=== PATIENT | male | born 1935 | race Caucasian/White ===

== ENCOUNTER 2016-10-10 15:00 | Emergency (ER) | payer MEDICARE ==
[~2016-10-10] VITALS: Ht 177.8 cm; Wt 95.5 kg
[~2016-10-10 15:00] MED LIST: ASPI-628 PO; BUTA-238 PO; GLUC100016 PO; HYDR25TA4 PO; LEVO50TA6 PO; LISI-567 PO; METO25TA6 PO; OMEG1CAP5 PO; OMEP-113 PO; TAMS0.4C29 PO; WARF5TAB7 PO; [UNRECOGNIZED DRUG - OTHER] PO
[2016-10-10 15:10] VITALS: BP 134/76; PULSE 136; RESP 18; O2SAT 98
--- NOTE | 2016-10-10 15:10 | ED.REPORT ---
HPI-Chest Pain 40 and Over Date of Service Oct 10, 2016 ED Provider: The patient is an 81 year old male with history of atrial fibrillation on Warfarin, hypertension, hyperlipidemia, coronary artery disease, and symptomatic sinus bradycardia s/p pacemaker, who presents to the emergency department complaining of a palpitations that began last night. This morning it seemed like his heart slowed down but it began to speed up again prior to arrival. He states, "it feels like I have been running." He denies chest pain, shortness of breath, lower extremity swelling, fever, chills, abdominal pain or cough. Nursing Notes Stated Complaint: HEART RATE RACING Chief Complaint: Dysrhythmia/Cardiac Nursing Notes Reviewed: Yes Allergies: Coded Allergies: No Known Allergies (Verified Allergy, Unknown, NONE, 06/18/14) Scheduled Aspirin (Aspir 81) 81 Mg Tablet.dr 81 MG PO DAILY Glucosamine Sulfate 2Kcl (Glucosamine) 1,000 Mg Tablet 500 MG PO BID Hydrochlorothiazide (Hydrochlorothiazide) 25 Mg Tablet 12.5 MG PO DAILY Levothyroxine (Levothyroxine) 50 Mcg Tablet 50 MCG PO DAILY Lisinopril (Lisinopril) 20 Mg Tablet 20 MG PO BID Metoprolol Tartrate (Metoprolol Tartrate) 25 Mg Tablet 12.5 MG PO BID [place]-3 Fatty Acids/Fish Oil (Fish Oil 1,000 mg Capsule) 1 Each Capsule 1 EACH PO DAILY Omeprazole Magnesium (Omeprazole) 20 Mg Capsule.dr 40 MG PO DAILY Tamsulosin ER (Tamsulosin ER) 0.4 Mg Cap.er.24h 0.4 MG PO DAILY Warfarin Sodium (Warfarin Sodium) 5 Mg Tablet 5 MG PO DAILY Scheduled PRN ([coloncare]) 1 TSP PO DAILY PRN PRN d Butalbital/Acetamin/Caff 50-300-40 mg (Butalbital/Acetamin/Caff 50-300-40 mg) 1 Each Tablet 1 EACH PO Q4 PRN PRN For Headache General Time Seen by MD: 15:10 Chief Complaint Other (palpitations) Hx Obtained From: Patient Arrived By: Walk-in Sudden in Onset?: Yes Onset Occurred: Yesterday Symptom Duration: Waxes and wanes Severity: Current: No pain currently Severity: Maximum: No pain Recent Healthcare: No recent doctor visit, No recent hospitalization Similar Sx Previous: Yes Past Medical History Past Medical History Notes: Superintendent Plant: Dr. Kebede Past Medical History 1. 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 2. Monoclonal gammopathy of undetermined significance. 3. Mild chronic idiopathic thrombocytopenia. 4. Osteopenia. 5. Atrial fibrillation 6. Symptomatic sinus bradycardia s/p pacemaker 7. Hypertension 8. Hyperlipidemia 9. Coronary artery disease s/p stenting Past Surgical History Endoscopy, colonoscopy Dual-chamber cardiac pacemaker implanted on March 05, 2013 Cardiac stents Family History Noncontributory Smoking History Former Smoker Social History Other Social History: Good social support, , Local resident Ambulatory Status Independent Review of Systems Constitutional: Denies: Chills, Fever Respiratory: Denies: Non-productive cough, Shortness of breath Cardiovascular: Reports: Palpitations, Denies: Chest pain GI: Denies: Abdominal pain, Nausea, Vomiting Musculoskeletal: Denies: Extremity swelling Complete sys rev & neg: except as marked. Physical Exam Initial Vital Signs Vital Signs (First) Date Time Temp Pulse Resp B/P Pulse Ox O2 Delivery O2 Flow Rate FiO2 10/10/16 15:10 136 18 134/76 98 Room Air Initial VS: Reviewed Head / Eyes: Atraumatic, Normocephalic, PERRL ENT: Mucous membranes moist, Conjunctiva normal, No scleral icterus Lymphatic: No lymphadenopathy Extremities: Vascular intact, Neuro intact, No swelling, No tenderness Skin: Warm, Dry, No cyanosis Neurologic: Alert, Oriented, Nonfocal Psychiatric: Mood/affect normal, Behavior normal, Normal thought content General/Constitutional: Awake, Alert, Cooperative Respiratory / Chest: Atraumatic, Breath sounds NL, Breath sounds = bilat, No respiratory distress, No rales, No rhonchi, No wheezing, No stridor, No chest tenderness Heart Rate / Rhythm: Positive: Irreg irregular rhythm, Tachycardia Abdomen: Atraumatic, Soft, Non-tender, McBurney's non-tender, No guarding, No rebound, BS normoactive, No distention, No hernia, No palpable mass Neck: Atraumatic, Non-tender, No midline vertebral tend, No JVD Interpretation & Diagnostics Lab Results Interpretation Result Diagram: 10/10/16 1522 10/10/16 1522 Test 10/10/16 15:22 White Blood Count 7.0th/mm3 (3.8-10.1) Red Blood Count 5.15mil/mm3 (4.40-5.80) Hemoglobin 14.4g/dL (13.8-17.2) Hematocrit 42.4% (41.0-50.0) Mean Corpuscular Volume 82.3fL (81-100) Mean Corpuscular Hemoglobin 28.0pg (27.0-35.0) Mean Corpuscular Hemoglobin Concent 34.0% (32.0-37.0) Red Cell Distribution Width 14.1% (12.3-15.4) Platelet Count 127bil/L (150-400) Neutrophils (%) (Auto) 57.4% (40-74) Lymphocytes (%) (Auto) 33.9% (14-46) Monocytes (%) (Auto) 7.2% (4-12) Eosinophils (%) (Auto) 1.3% (0-5) Basophils (%) (Auto) 0.1% (0-3) Prothrombin Time 22.6sec (8.1-12.5) Prothromb Time International Ratio 2.08ratio Sodium Level 135mEq/L (134-144) Potassium Level 3.9mEq/L (3.5-5.2) Chloride Level 98mEq/L (97-108) Carbon Dioxide Level 23mmol/L (18-29) Blood Urea Nitrogen 19mg/dL (8-27) Creatinine 1.10mg/dL (0.76-1.27) Estimat Glomerular Filtration Rate 68mL/min (>59) Glucose Level 117mg/dL (60-99) Calcium Level 9.7mg/dL (8.5-10.1) Magnesium Level 2.0mg/dL (1.6-2.6) Total Bilirubin 0.5mg/dL (0.0-1.2) Aspartate Amino Transf (AST/SGOT) 20U/L (0-50) Alanine Aminotransferase (ALT/SGPT) 21U/L (0-44) Alkaline Phosphatase 46U/L (25-160) Total Protein 7.2g/dL (6.4-8.4) Albumin 4.2g/dL (3.4-5.0) Thyroid Stimulating Hormone (TSH) 2.600uIU/mL (0.450-4.500) ECG Interpretation ECG Interpretation: Atrial fibrillation with a rate of 124 He has previously been in sinus rhythm Time: 15:19 Interpreted by: ED physician X-Ray Chest Interpretation Chest Xray Interpretation: IMPRESSION: No acute pulmonary process. Dictated by: Tonia Ireland M.D. on 10/10/2016 at 16:08 Interpretation / Wet Read by: Interpret - Radiologist Re-Eval/Medical Decision Med Decision/Clinical Course Patient arrives in A. fib with rapid ventricular response, other than the sense of palpitations he has no other concerning symptoms. Labs are unremarkable, chest x-ray unremarkable, he is treated with 25 of oral metoprolol and a total of 12.5 mg IV which has brought appropriate rate control with a persistent heart rate under 100. I did discuss with him synchronized cardioversion, he declines this as he does not seem to have much in the way of symptoms. I also discussed with his job setter honing who is in agreement with close follow-up in increasing the home dose of metoprolol. Strict return and follow-up precautions given. Source of Hx: Old records, Family Time of Eval: 15:45 Re-Evaluation/Progress Note: Rechecked the patient. Time of Eval: 16:21 Re-Evaluation/Progress Note: The patient is resting comfortably. Discussed plan to discuss his case with Dr. Kebede. Time of Eval: 16:59 Re-Evaluation/Progress Note: Offered synchronized cardioversion and he doesn't feel that bad and would like to go home. He takes 12.5 mg metoprolol twice daily. We discussed plan to increase this dose. All questions were addressed. Consultation : Referral / Consult Name: Bean Kebede MD Consulted With: Cardiology Call Returned at: 16:49 Facilities Flight Check Pilot: Agrees with eval, Agrees with plan Note: Dr. Kebede will followup with the patient tomorrow. Counseled Regarding: Diagnosis, Lab results, Need for follow-up, When/why to return to ED Discharge & Departure Primary Impression: Atrial fibrillation Atrial fibrillation type: paroxysmal Qualified Code: I48.0 - Paroxysmal atrial fibrillation Disposition: Home Discharge Condition All VS Reviewed: Yes Condition: Stable Additional Instructions: Thank you for entrusting us with your care today. Call Dr. Kebede's office in the morning to schedule a followup appointment. Take 1.5 pills twice daily of your Metoprolol. Please return to the emergency department if you develop chest pain, shortness of breath, lightheadedness, dizziness, syncope, or any other new or concerning symptoms. Referrals: Max Robertson MD (PCP) Bean Kebede MD Attestation Portions of this note were transcribed by Naya Bardy. I, Dr. Kwon personally performed the history, physical exam and medical decision-making; I reviewed and confirmed the accuracy of the information in the transcribed note. Signed by: Annel Nguyen, 10/10/2016 at 1710. copies to: Max Robertson MD; Bean Kebede MD, Timothy S DO Oct 10, 2016 15:10 Naya Brady Oct 10, 2016 15:19
[2016-10-10] MEDS: MeTOProlol 1 mg/mL 5 mL Inj IVPUSH PRN ×3 (15:29→16:51)
[2016-10-10 15:34] VITALS: BP 116/70; PULSE 112; RESP 22; O2SAT 97
[2016-10-10 15:50] LABS: BASOPHILS % (AUTO) 0.1 % (0-3); EOSINOPHILS % (AUTO) 1.3 % (0-5); MONOCYTES % (AUTO) 7.2 % (4-12); Mean Corpuscular Volume 82.3 fL (81-100); NEUTROPHILS % (AUTO) 57.4 % (40-74); Platelet Count 127 bil/L (150-400)
[2016-10-10 15:53] LABS: INR 2.08 ratio
--- NOTE | 2016-10-10 16:09 | DRSVH ---
PROCEDURE: X-RAY CHEST ONE VIEW, PORTABLE ([id number]) INDICATIONS: palpitations TECHNIQUE: One view of the chest was acquired. COMPARISON: [facility], CR, XR CHEST 1VW (PORTABLE), 05/14/2016, 14:21. FINDINGS: Surgical changes and devices: Pacemaker. Lungs and pleura: No pleural effusions or pneumothorax. Lungs are clear. Mediastinum: Mediastinal contours appear normal. Heart size is normal. Bones and chest wall: No suspicious bony lesions. Overlying soft tissues appear unremarkable. IMPRESSION: No acute pulmonary process. Dictated by: Tonia Ireland M.D. on 10/10/2016 at 16:08 Approved by: Tonia Ireland M.D. on 10/10/2016 at 16:08
[2016-10-10 16:11] VITALS: BP 117/65; PULSE 111; O2SAT 96
[2016-10-10 16:30] VITALS: BP 109/64; PULSE 111
[2016-10-10 17:13] VITALS: BP 124/67; PULSE 97; RESP 19; O2SAT 97
== END 2016-10-10 17:10 | disposition home or self-care (01) ==
LOC: SED 15:00
DX: I48.0 Paroxysmal atrial fibrillation (principal); I10 Essential (primary) hypertension; E78.5 Hyperlipidemia, unspecified; I25.10 Atherosclerotic heart disease of native coronary artery without angina pectoris; Z86.79 Personal history of other diseases of the circulatory system; Z95.0 Presence of cardiac pacemaker; Z95.818 Presence of other cardiac implants and grafts; Z92.21 Personal history of antineoplastic chemotherapy; Z85.46 Personal history of malignant neoplasm of prostate; Z87.891 Personal history of nicotine dependence; Z79.01 Long term (current) use of anticoagulants; Z79.82 Long term (current) use of aspirin

== ENCOUNTER 2016-11-11 07:52 | Inpatient (IN) | payer MEDICARE ==
[~2016-11-11] VITALS: Ht 177.8 cm; Wt 97.4 kg
[2016-11-11 08:08] VITALS: BP 108/73; PULSE 115; RESP 16; O2SAT 98
[2016-11-11 08:10] VITALS: PULSE 142
[2016-11-11] MEDS ORDERED: Polyethylene Glycol (PEG) 17 Gm Powder PO PRN (08:25)
[2016-11-11] MEDS ORDERED: Alum-Mag Hydrox-Simeth 30 mL Suspension PO PRN (08:25)
[2016-11-11 09:08] LABS: INR 2.38 ratio
[2016-11-11 09:20] LABS: Magnesium 1.9 mg/dL (1.6-2.6)
[2016-11-11] MEDS ORDERED: HYDR12.5 PO (09:47)
[2016-11-11] MEDS ORDERED: SIMV20TA4 PO (09:47)
[2016-11-11] MEDS ORDERED: METO-272 PO (09:47)
[2016-11-11] MEDS ORDERED: OMEP20CA11 PO (09:47)
[2016-11-11] MEDS ORDERED: LISI10TA PO (09:47)
[2016-11-11] MEDS ORDERED: OMEG300C3 PO (09:51)
[2016-11-11] MEDS ORDERED: CHOL200047 PO (09:51)
[2016-11-11 12:00] VITALS: BP 127/84; PULSE 120; RESP 16; O2SAT 98
[2016-11-11 16:00] VITALS: BP 143/88; PULSE 102; RESP 16; O2SAT 98
--- NOTE | 2016-11-11 18:31 | NUR ---
Admit Patient was a direct admit to [facility] for sotalol loading. Patient arrived on unit around 0830. Patient A&Ox3, ambulates independently around unit. VSS. Tele Afib with a rate of 120-130. Denies pain/discomfort. States he has been getting SOB frequently but denies these symptoms today. Patient watching TV call light within reach.
--- NOTE | 2016-11-11 18:35 | HP ---
[address] [address] HISTORY AND PHYSICAL PATIENT: RAUL REICH : 1935 MR#: [id number] ADMIT: 11/11/2016 JOB ID: [id number] REASON FOR ADMISSION: To start new antiarrhythmic therapy for atrial fibrillation with sotalol. CHIEF COMPLAINT: Palpitations, dyspnea and fatigue. HISTORY: The patient is a pleasant, 81-year-old man with a structurally normal heart who was known to have coronary artery disease and who is status post PCI several years ago. He also has sick sinus syndrome and a dual-chamber pacemaker in place. Newly diagnosed is atrial fibrillation and his pacemaker data has shown persistence of atrial fibrillation for several weeks. Prior to this time, his atrial fib had been paroxysmal and self-terminating. With this continuous atrial fibrillation he has become dyspneic and fatigued and just does not have much exertional energy. PAST MEDICAL HISTORY: Includes sinus bradycardia in February 2012, atrial tachycardia in April 2015. He also has hypertension, dyslipidemia, and a family history of coronary artery disease. ALLERGIES: No known medication allergies. REVIEW OF SYSTEMS: Overall no recent weight gain or weight loss but he is in general fatigue. Skin: No rash. Musculoskeletal: No muscle weakness. Neuro: No dizziness, near-syncope or syncope. : No hematuria. GI: No blood in stool and no heartburn. Psychiatric: No anxiety. Cardiac: Positive for palpitations and elevated heart rate but negative for chest pain, claudication or edema. Respiratory: No dyspnea at rest. Hematology: No easy bleeding. Endocrine: No polydipsia. Eyes: No visual changes. PHYSICAL EXAMINATION: Vital signs: BP 127/84, pulse 120 BPM and irregular, respirations 16 per minute. Oxygen saturation 98% on room air. Constitutionally this is an elderly white man in no distress. Eyes show no jaundice. Mucous membranes are moist. Neck exam shows no thyromegaly, no JVD. Carotid pulses are intact. There are no bruits. Respiratory: Normal breath sounds bilaterally. No crackles or wheezes. Cardiac: Irregularly irregular rhythm and tachycardic. No S3 or S4 sounds and no murmurs. Vasculature: Bruits are absent at the neck and peripheral pulses are intact. He has peripheral edema. Abdomen soft and nontender. Skin: No rash. Musculoskeletal: Gait normal and he is able to move all four extremities normally. Neurological: Exam was grossly normal and he is well oriented to place, person and situation. He is appropriate in his mood and affect. ASSESSMENT: The patient is a man with coronary artery disease history and sick sinus syndrome who has developed first paroxysmal and now persistent atrial fibrillation. He has a history of hypertension. He does not feel up to normal energy and has exertional fatigue and would like to get back into normal rhythm. He and Dr. Kebede considered the options for medications or ablation therapy and elected to start sotalol rather than committing him to amiodarone. His anticoagulation has been therapeutic, with INRs above 2.0. PLAN: Admit to hospital and after baseline labs and ECG data, start sotalol 80 mg b.i.d. A 12 lead ECG will be recorded two hours after each dose of sotalol looking for any abnormal prolongation of QT interval. He will be kept on continuous cardiac telemetry watching for ventricular arrhythmias. If he has not converted spontaneously with medication to sinus rhythm by the third day, we may pursue cardioversion at that time.
--- NOTE | 2016-11-11 19:47 | PCM.CONPHA ---
Subjective Date of Service: Nov 11, 2016 Requesting Provider: Mike Montero PA-C Reason for Pharmacy Consult: Anticoagulation Management Objective Vital Signs Date Time Temp Pulse Resp B/P Pulse Ox O2 Delivery O2 Flow Rate FiO2 11/11/16 16:00 36.4 102 16 143/88 98 Room Air 11/11/16 12:00 36.7 120 16 127/84 98 Room Air 11/11/16 08:10 142 11/11/16 08:08 36.4 115 16 108/73 98 Room Air Weight (Kilograms): 97.800 Height (Feet): 5 Height (Inches): 10.00 Test 11/11/16 08:40 Prothrombin Time 25.9sec (8.1-12.5) Prothromb Time International Ratio 2.38ratio Sodium Level 136mEq/L (134-144) Potassium Level 4.5mEq/L (3.5-5.2) Chloride Level 100mEq/L (97-108) Carbon Dioxide Level 23mmol/L (18-29) Blood Urea Nitrogen 22mg/dL (8-27) Creatinine 1.03mg/dL (0.76-1.27) Estimat Glomerular Filtration Rate 73mL/min (>59) Glucose Level 115mg/dL (60-99) Calcium Level 9.3mg/dL (8.5-10.1) Magnesium Level 1.9mg/dL (1.6-2.6) Total Bilirubin 0.5mg/dL (0.0-1.2) Aspartate Amino Transf (AST/SGOT) 23U/L (0-50) Alanine Aminotransferase (ALT/SGPT) 31U/L (0-44) Alkaline Phosphatase 47U/L (25-160) Total Protein 6.0g/dL (6.4-8.4) Albumin 4.1g/dL (3.4-5.0) Assessment/Plan Assessment/Plan Warfarin per Rx Indication: A-Fib INR Goal: 2-3; Today's INR: 2.38 Home Dose: 7.5mg daily except 10mg on Mon, verified with pt Keep home dose of 7.5mg due to therapeutic range Daily INR ordered Justino Nair PharmD Nov 11, 2016 19:47
[2016-11-11 20:57] VITALS: BP 129/87; PULSE 109; RESP 16; O2SAT 97
[2016-11-11] MEDS: MeTOProlol XL 25 mg ER24 Tablet PO SCH (21:04)
[2016-11-12] VITALS (9 sets, daily range): BP systolic 113–137; BP diastolic 76–92; PULSE 75–125; RESP 16–18; O2SAT 95–99
--- NOTE | 2016-11-12 03:28 | NUR ---
heart monitoring per manager telemetry patient is in atrial fibrillation. rate 110-120 qt interval 0.36 tolerating ambulating to bathroom. reviewed sotalol medication and purpose. patient verbalized understanding care ongoing.
[2016-11-12 04:43] LABS: INR 2.5 ratio
[2016-11-12] MEDS: Pantoprazole 40 mg ER24 Tablet PO SCH (06:21)
--- NOTE | 2016-11-12 07:14 | PCM.PHAPRO ---
Progress Date of Service: Nov 12, 2016 Warfarin dosing Date Nov 12-Oct INR 2.38 2.5 INR change 0.12 Warf Dose 7.5 7.5 A/ INR is therapeutic. P/ Continue with home dose of warfarin today. Carmine Madsen Nov 12, 2016 07:14
[2016-11-12] MEDS: MeTOProlol XL 25 mg ER24 Tablet PO SCH ×2 (08:50→20:23)
--- NOTE | 2016-11-12 10:10 | PROG NOTE ---
[address] [address] PROGRESS NOTE PATIENT: RAUL REICH : 1935 MR#: [id number] ADMIT: 11/11/2016 JOB ID: [id number] DATE: 11/12/2016 CHIEF COMPLAINT: Palpitations, dyspnea and fatigue. SUBJECTIVE: The patient is an 81-year-old man who has had persistent atrial fibrillation documented by his implanted pacemaker for the past month. He has been symptomatic with dyspnea and fatigue, and has poor exertional tolerance. He was started on sotalol yesterday and is tolerating the medication well. He denies any side effects from the medication. The patient is ambulatory in the hallway here without undue dyspnea. OBJECTIVE: Vital signs this morning include BP 113/90, pulse irregular averaging about 120 bpm in atrial fibrillation, pulse oximetry 97% on room air. His 12-lead ECG from last night 2 hours after the second dose of sotalol 80 mg showed atrial fibrillation, average rate 125 bpm and a QTc of 485 msec. Lab data this morning, INR is 2.50. His physical exam is unchanged from yesterday. ASSESSMENT: A patient with persistent atrial fibrillation and rapid ventricular response who is symptomatic with mild fatigue and exertional dyspnea. This morning we will increase the sotalol dose to 120 mg b.i.d. and hope for spontaneous conversion today. So far, vital signs, and symptoms are stable. PLAN: Continue sotalol 120 mg b.i.d., with 12-lead ECGs 2 hours after each dose. We will plan a cardioversion tomorrow, if necessary. Therefore, he will be n.p.o. after midnight this evening. KAT
--- NOTE | 2016-11-12 14:14 | NUR ---
Social Work-initial assessment: Data:See initial assessment. Pt is an 81 y/o male who was admitted on 11/11/16 for AFIB per H&P. Pt's insurance is [employer] [place] Medicare and PCP is Max Robertson MD. EMR Reviewed. Pt's readmission score is 2-no risk. SW met with pt at bedside to discuss discharge planning, SW role explained. Pt is alert and oriented x3. Pt resides at home with in [place] in a 2 level home with 10 steps where pt remains independent with basic ADLs. Pt uses no DME at baseline and drives POV. Pt has no HH or SNF history. Pt has not completed DPOA/ advanced directive and SW provided paperwork to review and complete. Pt has no nursing home care or VA benefits. Per progress note pt will possibly have cardioversion tomorrow. Pt's family to provide transport home at discharge. No further needs assessed at this time. SW provided phone number and plan on white board in room. SW will continue to follow. Assessment:Pt who resides at home with and is independent at baseline. Plan:Pt to likely discharge home with no needs when medically stable. SW will continue to follow. ISRA Quijano Addendum: 11/12/16 at 1418 by ANTOINETTE LUGO Amended: Links added.
--- NOTE | 2016-11-12 16:13 | NUR ---
Multidisciplinary Communication Spoke to ROXANNA Brannon this morning asking if he could have coffee as he was requesting it. He said yes and a cup was given to him. Mike said he was working in scheduling a cardioversion tomorrow around 1000 if he did not convert to sinus rhythm today or tonight. Pt is aware. Care continues.
[2016-11-12] MEDS: Sodium Chloride LOK Flush 10 mL Syringe IVFLUSH SCH (18:22)
[2016-11-13 00:20] VITALS: BP 109/73; PULSE 76; RESP 20; O2SAT 94
--- NOTE | 2016-11-13 02:11 | NUR ---
education / plan of care patient concerned about cardioversion in am discussed cardiofersion. answered questions. verbalized understanding.
[2016-11-13] MEDS: Sodium Chloride LOK Flush 10 mL Syringe IVFLUSH SCH ×2 (02:49→07:57)
[2016-11-13 03:42] LABS: INR 2.57 ratio
[2016-11-13 05:02] VITALS: PULSE 116
[2016-11-13 05:16] VITALS: BP 129/84; PULSE 83; RESP 20; O2SAT 95
[2016-11-13] MEDS: Pantoprazole 40 mg ER24 Tablet PO SCH (05:37)
[2016-11-13] MEDS ORDERED: Methohexital 10 mg/mL 50 mL Inj IV ONE (06:00)
--- NOTE | 2016-11-13 07:02 | PCM.PHAPRO ---
Progress Date of Service: Nov 13, 2016 Warfarin dosing Date -Nov 12-Nov 13-Oct INR 2.38 2.5 2.57 INR change 0.12 0.07 Warf Dose 7.5 7.5 7.5 Carmine Madsen Nov 13, 2016 07:01
[2016-11-13 07:48] VITALS: BP 130/86; PULSE 111; RESP 16; O2SAT 96
[2016-11-13] MEDS: MeTOProlol XL 25 mg ER24 Tablet PO SCH (07:57)
[2016-11-13 08:08] LABS: APPEARANCE,URINE CLEAR (CLEAR,HAZY); COLOR,URINE YELLOW (YELLOW); OCCULT BLOOD,URINE TRACE (NEGATIVE); UROBILINOGEN,URINE NORMAL (NORMAL)
[2016-11-13 08:59] VITALS: PULSE 132
[2016-11-13] MEDS ORDERED: Methohexital 10 mg/mL 50 mL Inj ONE (10:06)
--- NOTE | 2016-11-13 11:08 | PCM.DIMED ---
Discharge Instructions Date of Service Nov 13, 2016 Dates of Hospitalization Nov 11, 2016 at 07:52 Discharge Diagnosis Discharge Diagnosis Persistent Atrial Fibrilllation Sinus Bradycardia Hypertension Diet Heart Healthy Activity No restrictions Call your provider Weakness (unilateral), Other (Fainting or near fainting) Patient Instructions Mid-level Provider (F9): Mike Montero PA-C Follow-up with Mid-level in: 5 weeks Mike Montero PA-C Nov 13, 2016 11:08
--- NOTE | 2016-11-13 11:10 | NUR ---
Social Work: Discharge Data: Pt is on day 2 of hospitalization. EMR reviewed, pt discussed in rounds. D/C orders are in. No d/c planning needs at this time. SECTION BEAMER will continue to follow if needs arise. Assessment: Pt who is independent at baseline. Plan: Pt will d/c home via POV today. No d/c planning needs at this time. SECTION BEAMER will continue to follow if needs arise. ISRA Campoverde
[2016-11-13] MEDS ORDERED: METO-272 PO (11:21)
[2016-11-13] MEDS ORDERED: BET80 PO (11:21)
[2016-11-13] MEDS ORDERED: WARF5TAB7 PO (11:21)
--- NOTE | 2016-11-13 13:05 | NUR ---
Cardioversion, Discharge His Cardioversion procedure started around 1010 and finished about 1045. He tolerated it well and converted to sinus rhythm in the 60s. Mary Paul, the charge nurse administered the conscious sedation and documented the procedural progress in his paper chart. He discharged about 1305 and was able to walk out with his and belongings. Prior to discharge his IV and telemetry were discontinued intact. His IV site bandage had to be changed twice due to bleeding. Discharge paperwork was given to him and discussed (instructions and care notes). His prescription was [facility]ed to [facility]. He and his thanked staff for all their wonderful care saying the staff here are very friendly.
--- NOTE | 2016-11-13 13:26 | PROCED ---
[address] [address] PROCEDURE NOTE PATIENT: RAUL REICH : 1935 MR#: [id number] ADMIT: 11/11/2016 JOB ID: [id number] DATE OF SERVICE: 11/13/2016 POSTOPERATIVE DIAGNOSIS(ES): PREOPERATIVE DIAGNOSIS(ES): SURGEON: Jose Sanchez MD. The patient is an 81-year-old gentleman, hospitalized for initiation of sotalol therapy for persistent atrial fibrillation. He has a dual-chamber pacemaker in place. Today is his 3rd day of sotalol administration, and prior to discharge, plans were made for elective cardioversion. Following informed consent, the patient was sedated with 1 mg of Versed followed by 40 mg of Brevital, which provided excellent sedation. Respiratory therapy and nursing services were available and at the bedside. The patient was cardioverted with a synchronized 200-joule biphasic shock through anterior-posterior patches with prompt conversion to atrially paced rhythm. The patient tolerated the procedure well without difficulties or complications.
--- NOTE | 2016-11-13 15:39 | DIS ---
[address] [address] DISCHARGE SUMMARY PATIENT: RAUL REICH : 1935 MR#: [id number] ADMIT: 11/11/2016 JOB ID: [id number] DIS: 11/13/2016 REASON FOR ADMISSION: The patient was admitted to start new antiarrhythmic medical therapy for atrial fibrillation with sotalol. CHIEF COMPLAINT: Palpitations and fatigue. BRIEF HISTORY: The patient is a pleasant, 81-year-old man with a structurally normal heart but known coronary artery disease and prior bypass surgery, who has been symptomatic with atrial fibrillation for at least the past month. He has not previously been treated with antiarrhythmic medication and was brought in the hospital to start therapy with sotalol. He has been therapeutically anticoagulated with warfarin. COURSE IN HOSPITAL: The patient was admitted to the [facility] and placed on cardiac telemetry. After baseline lab and ECG data were obtained, he was started on sotalol 80 mg b.i.d. His 12-lead ECG showed atrial fibrillation with an average rate of 133 bpm and a QT interval of 485 msec. Over the course of the next three days, he received five doses of sotalol, which was initially 80 mg but was advanced to 120 mg for the 3rd, 4th, and 5th doses. His ECG continued to show atrial fibrillation and the QT interval remained stable. On November 13, 2016, he was cardioverted by Dr. Jose Sanchez, and the final rhythm was an atrial paced rhythm at 60 bpm. His dual-chamber pacemaker was checked, and both atrial and ventricular leads have excellent capture thresholds, which are less than 1 V each. He recovered well from the sedation and had no signs or symptoms of any concern after the cardioversion. He was ambulatory and felt well for discharge home. His vital signs were stable. Final ECG showed an atrial paced rhythm at 60 bpm with a QT interval of 461 msec. DISCHARGE MEDICATIONS: 1. Sotalol 120 mg q.12 h. 2. Vitamin D3 2000 units daily. 3. Glucosamine 500 mg b.i.d. 4. Hydrochlorothiazide 12.5 mg daily. 5. Levothyroxine 50 mcg daily. 6. Lisinopril 10 mg daily. 7. [place]-3 fish oil capsule that is 300 mg daily. 8. Omeprazole 20 mg daily. 9. Simvastatin 20 mg q.h.s. 10. Tamsulosin 0.4 mg daily. 11. Metoprolol 50 mg b.i.d. 12. Warfarin 7.5 mg each evening. FINAL DIAGNOSES: 1. Persistent atrial fibrillation. 2. Hypertension. 3. Sinus bradycardia and dual-chamber cardiac pacemaker. 4. Dyslipidemia. 5. Probable sleep apnea.
== END 2016-11-13 13:00 | disposition home or self-care (01) | DRG 310 ==
LOC: PCC 07:52
PROVIDERS: ADMIT Internal Medicine Cardiovascular Disease; ATTEND Internal Medicine Cardiovascular Disease
PROC: 5A2204Z Restoration of Cardiac Rhythm, Single (ICD-10-PCS; principal; 2016-11-13)
DX: I48.1 Persistent atrial fibrillation (principal); I49.5 Sick sinus syndrome; Z95.0 Presence of cardiac pacemaker; I10 Essential (primary) hypertension; E78.5 Hyperlipidemia, unspecified; G47.30 Sleep apnea, unspecified; I25.10 Atherosclerotic heart disease of native coronary artery without angina pectoris; Z98.61 Coronary angioplasty status; Z79.01 Long term (current) use of anticoagulants